=== PATIENT | female | born 1970 | race Caucasian/White ===

== ENCOUNTER → 2017-07-27 | Outpatient (CLI) | payer OTHER ==
[2014-10-28 07:22] VITALS: BP 146/82
[~2017-07-27] MED LIST: CHILDREN'S ASPI81 M1; CIPRO 250MG TA250 MG PO; DIABETA1.25 MG; GEMFIBROZIL600 MG; METFORMIN500 MG; MULTI VITAMINS1 TAB; OMEPRAZOLE20 MG PO; PREDNISONE20 M1 PO; ZYRTEC10 M2
== END ==
LOC: LAB 07:14
DX: E11.9 Type 2 diabetes mellitus without complications (principal)

== ENCOUNTER → 2018-02-22 | Outpatient (CLI) | payer BC ==
[2014-10-28 07:22] VITALS: BP 146/82
== END ==
LOC: MAMMO 15:15
DX: Z12.31 Encounter for screening mammogram for malignant neoplasm of breast (principal)

== ENCOUNTER → 2018-02-28 | Outpatient (CLI) | payer BC ==
[2014-10-28 07:22] VITALS: BP 146/82
[2018-02-28 07:59] LABS: HEMATOCRIT 42.9 % (37.0-47.0); HEMOGLOBIN 14.5 g/dL (12.5-16.0); MEAN PLATELET VOLUME 9.1 fl (7.4-10.4); RED BLOOD COUNT 4.93 M/mm3 (4.10-5.30); RED CELL DISTRIBUTION WIDTH 12.6 % (11.5-14.5); WHITE BLOOD COUNT 9.5 K/mm3 (4.8-10.8)
[2018-02-28 12:40] LABS: ALBUMIN 4.2 g/dL (3.5-5.0); POTASSIUM 4.5 mmol/L (3.6-5.0); TOTAL BILIRUBIN 0.5 mg/dL (0.2-1.3)
== END ==
LOC: RAD 07:19
PROVIDERS: Family Medicine
DX: R92.8 Other abnormal and inconclusive findings on diagnostic imaging of breast (principal)

== ENCOUNTER 2018-05-27 15:00 | Outpatient (RCR) | payer OTHER ==
[2014-10-28 07:22] VITALS: BP 146/82
== END 2018-07-21 | disposition home or self-care (01) ==
LOC: OT
DX: S50.11XD Contusion of right forearm, subsequent encounter (principal); S80.00XD Contusion of unspecified knee, subsequent encounter; G56.01 Carpal tunnel syndrome, right upper limb; W50.0XXD Accidental hit or strike by another person, subsequent encounter

== ENCOUNTER → 2018-12-02 | Outpatient (CLI) | payer BC ==
[2014-10-28 07:22] VITALS: BP 146/82
== END ==
LOC: LAB 07:05
DX: E78.1 Pure hyperglyceridemia (principal); E11.65 Type 2 diabetes mellitus with hyperglycemia

== ENCOUNTER → 2019-09-25 | Outpatient (CLI) | payer OTHER ==
[2014-10-28 07:22] VITALS: BP 146/82
== END ==
LOC: LAB 14:00
DX: Z20.828 Contact with and (suspected) exposure to other viral communicable diseases (principal)

== ENCOUNTER → 2019-10-19 | Outpatient (CLI) | payer BC ==
[2014-10-28 07:22] VITALS: BP 146/82
== END ==
LOC: MAMMO 11:37
DX: Z13.820 Encounter for screening for osteoporosis (principal); M85.80 Other specified disorders of bone density and structure, unspecified site

== ENCOUNTER → 2019-12-15 | Outpatient (CLI) | payer BC ==
[2014-10-28 07:22] VITALS: BP 146/82
[2019-12-15 07:27] LABS: BASO # 0.1 (0.02-0.10); EOS # 0.2 (0.04-0.40); EOS % 2.5 % (1.0-5.0); HEMATOCRIT 39.8 % (37.0-47.0); HEMOGLOBIN 13.4 g/dL (12.5-16.0); LYMPH# 3.4 (1.50-4.00); MEAN CELL VOLUME 88 fl (78-100); MEAN CORPUSCULAR HEMOGLOBIN 30 pg (27-31); MEAN CORPUSCULAR HGB CONC 34 g/dL (33-37); MONO # 0.9 (0.20-0.80); NEU # 4.3 (1.40-6.50); PLATELET COUNT 426 K/mm3 (130-400); RED BLOOD COUNT 4.53 M/mm3 (4.10-5.30); RED CELL DISTRIBUTION WIDTH 12.8 % (11.5-14.5); WHITE BLOOD COUNT 8.9 K/mm3 (4.8-10.8)
[2019-12-15 08:03] LABS: POTASSIUM 4.5 mmol/L (3.5-5.1)
[2019-12-15 08:04] LABS: CALCIUM 10.1 mg/dL (8.3-10.5)
[2019-12-15 13:52] LABS: MAGNESIUM 1.78 mg/dL (1.60-2.60)
== END ==
LOC: LAB 07:05
PROVIDERS: Family Medicine
DX: E11.649 Type 2 diabetes mellitus with hypoglycemia without coma (principal); E04.2 Nontoxic multinodular goiter; R25.2 Cramp and spasm

== ENCOUNTER 2020-01-02 15:45 | Outpatient (RCR) | payer BC ==
[2014-10-28 07:22] VITALS: BP 146/82
== END 2020-01-02 16:15 | disposition still patient (30) ==
LOC: PT 15:45
DX: M54.16 Radiculopathy, lumbar region (principal)

== ENCOUNTER 2020-04-08 14:00 | Outpatient (RCR) | payer BC ==
[2014-10-28 07:22] VITALS: BP 146/82
== END 2020-04-15 | disposition home or self-care (01) ==
LOC: PT
DX: M54.16 Radiculopathy, lumbar region (principal)

== ENCOUNTER → 2020-06-21 | Outpatient (CLI) | payer BC ==
[2014-10-28 07:22] VITALS: BP 146/82
[2020-06-21 06:45] LABS: HEMATOCRIT 42.5 % (37.0-47.0); MEAN PLATELET VOLUME 9.1 fl (7.4-10.4); RED BLOOD COUNT 4.8 M/mm3 (4.10-5.30); RED CELL DISTRIBUTION WIDTH 13.5 % (11.5-14.5); WHITE BLOOD COUNT 9.5 K/mm3 (4.8-10.8)
[2020-06-21 06:58] LABS: ALBUMIN 4.4 g/dL (3.5-5.0); POTASSIUM 4.6 mmol/L (3.5-5.1)
[2020-06-21 06:59] LABS: CALCIUM 10.2 mg/dL (8.3-10.5)
[2020-06-21 07:00] LABS: TOTAL PROTEIN 7.4 g/dL (6.4-8.3)
[2020-06-21 07:02] LABS: TOTAL BILIRUBIN 0.5 mg/dL (0.2-1.2)
== END ==
LOC: LAB 06:32
PROVIDERS: Family Medicine
DX: Z01.89 Encounter for other specified special examinations (principal)

== ENCOUNTER → 2020-10-28 | Outpatient (REF) | LOC: LAB 16:09 | DX: Z20.822 Contact with and (suspected) exposure to COVID-19 (principal) ==

== ENCOUNTER → 2020-10-29 | Outpatient (CLI) | payer BC | LOC: LAB 13:58 | DX: J02.9 Acute pharyngitis, unspecified (principal) ==

== ENCOUNTER → 2021-01-01 | Outpatient (CLI) | payer BC ==
[2021-01-01 19:48] LABS: ALBUMIN 4.1 g/dL (3.5-5.0); POTASSIUM 4.3 mmol/L (3.5-5.1)
[2021-01-01 19:50] LABS: CALCIUM 9.9 mg/dL (8.3-10.5)
[2021-01-01 19:51] LABS: TOTAL PROTEIN 6.8 g/dL (6.4-8.3)
[2021-01-01 19:53] LABS: TOTAL BILIRUBIN 0.2 mg/dL (0.2-1.2)
== END ==
LOC: LAB 19:11
PROVIDERS: Family Medicine
DX: E11.9 Type 2 diabetes mellitus without complications (principal)

== ENCOUNTER → 2021-03-28 | Outpatient (CLI) | payer BC ==
[2021-03-28 09:32] LABS: POTASSIUM 4.2 mmol/L (3.5-5.1)
[2021-03-28 09:33] LABS: CALCIUM 10.2 mg/dL (8.3-10.5)
== END ==
LOC: LAB 08:51
PROVIDERS: Family Medicine
DX: E11.9 Type 2 diabetes mellitus without complications (principal)

== ENCOUNTER → 2021-05-13 | Outpatient (CLI) | payer BC ==
[2021-05-13 08:33] LABS: BASO # 0.03 K/mm3 (0.02-0.10); EOS # 0.22 K/mm3 (0.04-0.40); EOS % 2.9 % (1.0-5.0); HEMATOCRIT 39.4 % (37.0-47.0); HEMOGLOBIN 13.2 g/dL (12.5-16.0); LYMPH# 2.75 K/mm3 (1.50-4.00); MEAN CELL VOLUME 88 fl (78-100); MEAN CORPUSCULAR HEMOGLOBIN 30 pg (27-31); MEAN CORPUSCULAR HGB CONC 34 g/dL (33-37); MEAN PLATELET VOLUME 9.3 fl (7.4-10.4); MONO # 0.67 K/mm3 (0.20-0.80); PLATELET COUNT 410 K/mm3 (130-400); RED BLOOD COUNT 4.46 M/mm3 (4.10-5.30); RED CELL DISTRIBUTION WIDTH 12.8 % (11.5-14.5); WHITE BLOOD COUNT 7.7 K/mm3 (4.8-10.8)
[2021-05-13 08:36] LABS: ALBUMIN 4.5 g/dL (3.5-5.0); POTASSIUM 4.5 mmol/L (3.5-5.1)
[2021-05-13 08:37] LABS: CALCIUM 9.9 mg/dL (8.3-10.5)
[2021-05-13 08:39] LABS: TOTAL PROTEIN 7.8 g/dL (6.4-8.3)
[2021-05-13 08:40] LABS: TOTAL BILIRUBIN 0.3 mg/dL (0.2-1.2)
[2021-05-13 10:47] LABS: ERYTHROCYTE SEDIMENTATION RATE 25 mm/hr (0-30)
== END ==
LOC: LAB 07:48
DX: L50.8 Other urticaria (principal)

== ENCOUNTER → 2021-07-22 | Outpatient (CLI) | payer BC ==
[2021-07-22 18:46] LABS: POTASSIUM 4.7 mmol/L (3.5-5.1)
[2021-07-22 18:47] LABS: CALCIUM 10.2 mg/dL (8.3-10.5)
== END ==
LOC: LAB 18:20
PROVIDERS: Family Medicine
DX: E11.9 Type 2 diabetes mellitus without complications (principal)

== ENCOUNTER → 2021-10-24 | Outpatient (CLI) | payer BC | LOC: RAD 13:49 | DX: S92.511A Displaced fracture of proximal phalanx of right lesser toe(s), initial encounter for closed fracture (principal) ==

== ENCOUNTER → 2021-11-04 | Outpatient (CLI) | payer BC ==
[~2021-11-04] MED LIST changes: +LOPID600 MG PO; +OZEMPIC0.25 MG/0. SQ
[2021-11-04 11:57] LABS: BASO # 0.03 K/mm3 (0.02-0.10); EOS # 0.24 K/mm3 (0.04-0.40); HEMATOCRIT 39.8 % (37.0-47.0); HEMOGLOBIN 13.3 g/dL (12.5-16.0); LYMPH# 2.74 K/mm3 (1.50-4.00); MEAN CELL VOLUME 87 fl (78-100); MEAN CORPUSCULAR HEMOGLOBIN 29 pg (27-31); MEAN CORPUSCULAR HGB CONC 33 g/dL (33-37); MEAN PLATELET VOLUME 9.8 fl (7.4-10.4); MONO # 0.75 K/mm3 (0.20-0.80); NEU # 4.09 K/mm3 (1.40-6.50); PLATELET COUNT 412 K/mm3 (130-400); RED CELL DISTRIBUTION WIDTH 12.4 % (11.5-14.5); WHITE BLOOD COUNT 7.9 K/mm3 (4.8-10.8)
[2021-11-04 12:03] LABS: POTASSIUM 4.6 mmol/L (3.5-5.1)
[2021-11-04 12:04] LABS: ALBUMIN 4.6 g/dL (3.5-5.0)
[2021-11-04 12:05] LABS: CALCIUM 10.4 mg/dL (8.3-10.5)
[2021-11-04 12:06] LABS: TOTAL PROTEIN 7.5 g/dL (6.4-8.3)
[2021-11-04 12:08] LABS: TOTAL BILIRUBIN 0.5 mg/dL (0.2-1.2)
== END ==
LOC: LAB 07:02
PROVIDERS: Family Medicine
DX: Z00.00 Encounter for general adult medical examination without abnormal findings (principal)

== ENCOUNTER 2021-11-30 12:40 | Emergency (ER) | payer BC ==
[~2021-11-30 12:40] MED LIST changes: -LOPID600 MG PO; -OZEMPIC0.25 MG/0. SQ
[2021-11-30] MEDS ORDERED: OZEMPIC0.25 MG/0. SQ (12:50)
[2021-11-30] MEDS ORDERED: LOPID600 MG PO (12:50)
[2021-11-30 14:30] VITALS: BP 138/75
== END 2021-11-30 14:10 | disposition home or self-care (01) ==
LOC: ED 12:40
DX: R05.9 Cough, unspecified (principal)
CPT/HCPCS: 15969; L4386

== ENCOUNTER → 2022-02-13 | Outpatient (CLI) | payer BC ==
[~2022-02-13] MED LIST changes: +LOPID600 MG PO; +OZEMPIC0.25 MG/0. SQ
[2022-02-13 07:39] LABS: HEMATOCRIT 38.7 % (37.0-47.0); HEMOGLOBIN 13.1 g/dL (12.5-16.0); MEAN PLATELET VOLUME 9.1 fl (7.4-10.4); RED BLOOD COUNT 4.46 M/mm3 (4.10-5.30); WHITE BLOOD COUNT 8.7 K/mm3 (4.8-10.8)
[2022-02-13 07:46] LABS: POTASSIUM 4.2 mmol/L (3.5-5.1)
[2022-02-13 07:47] LABS: ALBUMIN 4.3 g/dL (3.5-5.0)
[2022-02-13 07:49] LABS: TOTAL PROTEIN 7.6 g/dL (6.4-8.3)
[2022-02-13 07:51] LABS: TOTAL BILIRUBIN 0.4 mg/dL (0.2-1.2)
== END ==
LOC: LAB 07:17
PROVIDERS: Family Medicine
DX: Z00.00 Encounter for general adult medical examination without abnormal findings (principal)

== ENCOUNTER → 2022-06-16 | Outpatient (CLI) | payer BC | LOC: RAD 07:19 | DX: Z12.31 Encounter for screening mammogram for malignant neoplasm of breast (principal); M81.0 Age-related osteoporosis without current pathological fracture ==

== ENCOUNTER → 2022-12-28 | Outpatient (CLI) | payer BC ==
[2022-12-28 07:52] LABS: ALBUMIN 4.4 g/dL (3.5-5.0); POTASSIUM 4.1 mmol/L (3.5-5.1)
[2022-12-28 07:54] LABS: TOTAL PROTEIN 7.5 g/dL (6.4-8.3)
[2022-12-28 07:56] LABS: TOTAL BILIRUBIN 0.3 mg/dL (0.2-1.2)
== END ==
LOC: LAB 07:17
PROVIDERS: Family Medicine
DX: E11.9 Type 2 diabetes mellitus without complications (principal)

== ENCOUNTER → 2024-01-04 | Outpatient (CLI) | payer BC ==
[2024-01-04 09:33] LABS: HEMATOCRIT 41.8 % (37.0-47.0); HEMOGLOBIN 14.2 g/dL (12.5-16.0); MEAN PLATELET VOLUME 8.8 fl (7.4-10.4); RED BLOOD COUNT 4.83 M/mm3 (4.10-5.30); RED CELL DISTRIBUTION WIDTH 12.8 % (11.5-14.5); WHITE BLOOD COUNT 7.9 K/mm3 (4.8-10.8)
[2024-01-04 09:42] LABS: ALBUMIN 4.6 g/dL (3.5-5.0)
[2024-01-04 09:43] LABS: CALCIUM 10.8 mg/dL (8.3-10.5)
[2024-01-04 09:46] LABS: TOTAL BILIRUBIN 0.4 mg/dL (0.2-1.2)
[2024-01-04 09:51] LABS: MAGNESIUM 1.55 mg/dL (1.60-2.60)
[2024-01-04 23:01] LABS: PROGESTERONE 0.2 ng/mL (()); TESTOSTERONE 29 ng/dL (13-36)
[2024-01-04 23:08] LABS: HEPATITIS C VIRUS ANTIBODY Negative (Nonreactiv)
== END ==
LOC: LAB 09:06
PROVIDERS: Family Medicine
DX: Z01.419 Encounter for gynecological examination (general) (routine) without abnormal findings (principal)

== ENCOUNTER → 2024-04-26 | Outpatient (CLI) | payer BC | LOC: RAD 07:23 | DX: U07.1 COVID-19 (principal) ==